=== PATIENT | female | born 1925 ===

== ENCOUNTER 2017-03-22 17:42 | Inpatient (IN) | payer MEDICARE, MEDICAID ==
[2017-03-22 17:42] VITALS: BMI 25.3
[2017-03-22 20:48] LABS: RBC URINE 5 /hpf (0-3); URINE BACTERIA RARE (<OCC); URINE BILIRUBIN NEGATIVE (NEGATIVE); URINE COLOR Colorless (YELLOW); URINE GLUCOSE (UA) NORMAL (Normal); URINE KETONE NEGATIVE (NEGATIVE); URINE LEUKOCYTE ESTERASE NEG Leu/uL (Negative); URINE PROTEIN NEGATIVE (NEGATIVE); URINE UROBILINOGEN NORMAL mg/dL (0.2-1.0); WBC URINE 3 /hpf (0-5)
[2017-03-22 20:49] LABS: URINE BLOOD 1+ (NEGATIVE)
[2017-03-22 21:09] LABS: BASO % 0.5 % (0.0-2.0); EOS # 0.1 K/uL (0.0-0.7); EOS % 1.2 % (0.0-4.0); HEMATOCRIT 37.6 % (34.0-47.0); LYMPH # 2.5 K/uL (1.0-4.3); LYMPH % 24.1 % (20.0-40.0); MEAN CELL VOLUME 88.7 fL (81.0-99.0); MEAN CORPUSCULAR HEMOGLOBIN 28.1 pg (27.0-31.0); MEAN CORPUSCULAR HGB CONC 31.7 g/dL (33.0-37.0); MEAN PLATELET VOLUME 10.6 fL (7.2-11.7); MONO # 0.9 K/uL (0.0-0.8); MONO % 8.3 % (0.0-10.0); NRBC % 0.3 % (0.0-2.0); RED CELL DISTRIBUTION WIDTH 14.8 % (11.5-14.5); WHITE BLOOD COUNT 10.5 K/uL (4.8-10.8)
--- NOTE | 2017-03-22 21:28 | CP.PCM.HP ---
History of Present Illness - History of Present Illness History of Present Illness: Please note patient is AO x 3 but is a poor historian. CC: I felt dizzy HPI: 89 year old female PMHx HTN, atrial fibrillation, diverticulosis, osteopenia, CVA who presented to the ED BIBA with her son as she was feeling dizzy and weak this AM. Patient reports she felt like she was spinning and could feel like her heart was beating very fast which is why her son called EMS. As per ER documentation, patient was found to be in rapid Afib and was given Cardizem 20mg ivp in the field. In the ER patient was placed on cardizem gtt @ 10cc/hr. Patient reports she had a fall and CVA 2-3 months ago for which she was admitted at . Her only other complaint was pain in her knees and she stated she has a history of arthritis. Patient denied any complaints of fever, chills, diaphoresis, headache, blurry vision, ear pain, sore throat, dysphagia, chest pain, SOB, cough, abd pain, nausea, vomiting, bowel/bladder complaints, swelling of her legs bilaterally, back pain, bruising, bleeding, rash, recent bleeding, recent bruising, recent travel, recent sickness, sick contacts, change in appetite, change in weight. PMD: Anjali Cardio: Vojose guadalupe PMHx: HTN, atrial fibrillation, diverticulosis, osteopenia, CVA Meds per family: Norvasc 5mg po daily, ASA 325mg po daily, Lipitor 10mg po hs, Cozaar 50mg po bid, Xarelto 15mg po acs PSHx: implantable loop recorder, Hartmans procedure for perforated diverticulitis, Hartmans reversal, revision of Hartmans reversal due to suture granuloma, hernia repair at site of Hartmans reversal, hand surgery [patient unsure] FamHx: non-contributory Social: denies tobacco/ alcohol/ drugs. Lives with son. Walks with walker with wheels. ER Course: negative troponin with EKG showing Afib at 135bpm, Cardizem gtt @ 10cc/hr, INR 1.1 and patient on xarelto, labs drawn. Present on Admission - Present on Admission Any Indicators Present on Admission: No Review of Systems - Constitutional Constitutional: As Per HPI. absent: Chills, Fever - EENT Eyes: As Per HPI. absent: Blurred Vision Ears: As Per HPI, Dizziness. absent: Ear Pain Nose/Mouth/Throat: As Per HPI. absent: Dysphagia, Sore Throat - Cardiovascular Cardiovascular: As Per HPI, Irregular Heart Rhythm, Lightheadedness, Palpitations. absent: Chest Pain, Dyspnea, Dyspnea on Exertion, Edema, Leg Edema - Respiratory Respiratory: As Per HPI. absent: Cough, Dyspnea on Exertion, Wheezing, Chest Congestion - Gastrointestinal Gastrointestinal: As Per HPI. absent: Abdominal Pain, Constipation, Diarrhea, Nausea, Vomiting - Genitourinary Genitourinary: As Per HPI. absent: Dysuria, Hematuria, Pyuria, Nocturia - Musculoskeletal Musculoskeletal: As Per HPI, Stiffness (knees). absent: Back Pain, Numbness, Tingling - Integumentary Integumentary: As Per HPI. absent: Rash - Neurological Neurological: As Per HPI, Dizziness, Weakness. absent: Headaches, Tingling - Psychiatric Psychiatric: As Per HPI. absent: Anxiety, Depression - Endocrine Endocrine: As Per HPI, Palpitations. absent: Polydipsia, Polyphagia, Polyuria - Hematologic/Lymphatic Hematologic: As Per HPI. absent: Easy Bleeding, Easy Bruising, Lymphadenopathy Past Patient History - Infectious Disease Hx of Infectious Diseases: None - Past Medical History & Family History Past Medical History?: Yes - Past Social History Smoking Status: Never Smoked - CARDIAC Hx Atrial Fibrillation: Yes Hx Hypercholesterolemia: Yes Hx Hypertension: Yes Other/Comment: Has Reveal cardiac cath lab radiology technologist implanted 03/01/2015 - PULMONARY Hx Respiratory Disorders: No - NEUROLOGICAL Hx Neurological Disorder: No HX Cerebrovascular Accident: Yes (12/28/2016) - HEENT Hx HEENT Problems: Yes Other/Comment: wear eyeglasses - RENAL Hx Chronic Kidney Disease: No - ENDOCRINE/METABOLIC Hx Endocrine Disorders: No - HEMATOLOGICAL/ONCOLOGICAL Hx Blood Disorders: No - INTEGUMENTARY Hx Dermatological Problems: No - MUSCULOSKELETAL/RHEUMATOLOGICAL Hx Arthritis: Yes - GASTROINTESTINAL Hx Colostomy: Yes (reversal 2013) Hx Diverticulitis: Yes (perforated 2011) Other/Comment: c-diff 2011 - GENITOURINARY/GYNECOLOGICAL Hx Genitourinary Disorders: No - PSYCHIATRIC Hx Psychophysiologic Disorder: No Hx Substance Use: No Other/Comment: OCD-hoards medicines - SURGICAL HISTORY Hx Cholecystectomy: Yes - ANESTHESIA Hx Anesthesia: Yes Hx Anesthesia Reactions: Yes (cardiac arrest) Hx Malignant Hyperthermia: No Meds Allergies/Adverse Reactions: Allergies Allergy/AdvReac Type Severity Reaction Status Date / Time No Known Allergies Allergy Verified 06/09/15 16:58 Physical Exam - Constitutional Appears: Well, Non-toxic, No Acute Distress - Head Exam Head Exam: ATRAUMATIC, NORMAL INSPECTION, NORMOCEPHALIC - Eye Exam Eye Exam: EOMI, Normal appearance, PERRL. absent: Conjunctival injection, Scleral icterus Pupil Exam: NORMAL ACCOMODATION - ENT Exam ENT Exam: Mucous Membranes Moist - Neck Exam Neck exam: Positive for: Full Rom, Normal Inspection. Negative for: Lymphadenopathy, Tenderness - Respiratory Exam Respiratory Exam: Clear to Auscultation Bilateral, NORMAL BREATHING PATTERN. absent: Accessory Muscle Use, Rales, Rhonchi, Wheezes, Respiratory Distress - Cardiovascular Exam Cardiovascular Exam: Tachycardia, Irregular Rhythm, +S1, +S2. absent: REGULAR RHYTHM, JVD, RRR, Systolic Murmur - GI/Abdominal Exam GI & Abdominal Exam: Normal Bowel Sounds, Soft. absent: Distended, Firm, Guarding, Rigid, Tenderness - Rectal Exam Rectal Exam: Deferred - Extremities Exam Extremities exam: Positive for: normal capillary refill, normal inspection, pedal pulses present. Negative for: pedal edema, tenderness - Back Exam Back exam: NORMAL INSPECTION. absent: rash noted, tenderness - Neurological Exam Neurological exam: Alert, Oriented x3 - Psychiatric Exam Psychiatric exam: Normal Affect, Normal Mood - Skin Skin Exam: Dry, Intact, Normal Color, Warm Results - Vital Signs Recent Vital Signs: Last Vital Signs Temp 97.8 F 03/22/17 17:48 Pulse 129 H 03/22/17 17:55 Resp 18 03/22/17 17:55 BP 146/87 03/22/17 17:55 Pulse Ox 95 03/22/17 17:55 - Labs Result Diagrams: 03/22/17 20:39 03/22/17 21:16 Labs: Laboratory Results - last 24 hr 03/22/17 03/22/17 20:13 20:39 WBC 10.5 RBC 4.24 Hgb 11.9 Hct 37.6 MCV 88.7 D MCH 28.1 MCHC 31.7 L RDW 14.8 H Plt Count 216 MPV 10.6 Neut % (Auto) 65.9 Lymph % (Auto) 24.1 [place] % (Auto) 8.3 Eos % (Auto) 1.2 Baso % (Auto) 0.5 Neut # 6.9 Lymph # 2.5 [place] # 0.9 H Eos # 0.1 Baso # 0.0 Urine Color Colorless Urine Clarity Hazy Urine pH 5.0 Ur Specific [place] 1.006 Urine Protein Negative Urine Glucose (UA) Normal Urine Ketones Negative Urine Blood 1+ H Urine Nitrate Negative Urine Bilirubin Negative Urine Urobilinogen Normal Ur Leukocyte Esterase Neg Urine WBC (Auto) 3 Urine RBC (Auto) 5 H Ur Squamous Epith Cells 3 Urine Bacteria Rare Assessment & Plan - Assessment and Plan (Free Text) Assessment: 89 year old female PMHx HTN, atrial fibrillation, diverticulosis, osteopenia, CVA who presented to the ED BIBA with her son as she was feeling dizzy and weak this AM Plan: Rapid Atrial Fibrillation -Patient admitted to TELE -negative troponin x 1 -HR between 90 and 130bpm -INR 1.1 -Cardizem gtt @ 5cc/hr -Xarelto 15mg po acs -ASA 325mg po daily -Losartan 50mg po bid -Norvasc 5mg po daily -Dr. Phan cardiology consulted -Monitor Elevated D-dimer -D-dimer 429 -f/u CTA -f/u dopplers -SCD c/i until dopplers are done Dizziness -likely secondary to rapid Afib -Monitor Hx of HTN -Norvasc 5mg po daily -Cozaar 50mg po bid -Crestor 5mg po hs -Monitor Hx of CVA -no acute complaints of this admission -ASA 325mg po daily -Crestor 5mg po hs -Xarelto 15mg po acs for hx of Afib Hx of Diverticulosis -no acute complaints of this admission -Monitor Hx of osteopenia -no acute complaints of this admission -Monitor PPX -Protonix 40mg po daily -Xarelto 15mg po acs -NS @ 60cc/hr -Heart Healthy Diet -SCDs c/i until dopplers are done Plan discussed with Dr. Anjali Joseph PGY1
[2017-03-22 21:29] LABS: CHLORIDE 104 mmol/L (98-107)
[2017-03-22 21:30] LABS: POTASSIUM 3.7 mmol/L (3.6-5.2); SODIUM 140 mmol/L (132-148)
[2017-03-22 21:32] LABS: CARBON DIOXIDE 26 mmol/L (22-30); GFR AFRICAN-AMERICAN > 60
[2017-03-22 21:33] LABS: ALKALINE PHOSPHATASE 85 U/L (38-126); ALT/SGPT 19 U/L (9-52); AST/SGOT 21 U/L (14-36); BILIRUBIN,TOTAL 0.7 mg/dL (0.2-1.3); BLOOD UREA NITROGEN 23 mg/dL (7-17); CALCIUM 8.9 mg/dl (8.6-10.4); GLUCOSE,RANDOM 105 mg/dL (65-105); TOTAL PROTEIN 7.8 g/dL (6.3-8.3)
[2017-03-22 21:52] LABS: INR 1.1
--- NOTE | 2017-03-22 22:03 | C.PDOC ---
History Of Present Illness 89 y/o female brought in by EMS with complaints of palpitations. 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 Denies SOB, vomiting, or any other complaints. Time Seen by Provider: 03/22/17 20:10 Chief Complaint (Nursing): Palpitations History Per: Patient History/Exam Limitations: no limitations Onset/Duration Of Symptoms: Hrs Current Symptoms Are (Timing): Still Present Quality Of Symptoms: Rapid Heart Rate, Irregular Heart Rate Severity: Moderate Recent travel outside of the [place]: No Past Medical History Reviewed: Historical Data, Nursing Documentation, Vital Signs Vital Signs: Last Vital Signs Temp 97.8 F 03/22/17 17:48 Pulse 129 H 03/22/17 17:55 Resp 18 03/22/17 17:55 BP 146/87 03/22/17 17:55 Pulse Ox 95 03/22/17 22:03 - Medical History PMH: Arthritis, Atrial Fibrillation, Diverticulitis (perforated 2011), HTN, Hypercholesterolemia Surgical History: Cholecystectomy - [facility] Procedures INCISIONAL HERNIA REPAIR (10/12/13) LG BOWEL STOMA CLOSURE (05/29/13) NONEXCIS DEBRID OF WOUND, INFECT, OR BURN (07/05/13) OTH LYSIS-PERITONEAL ADHES (10/12/13) REMOV ABDOM WALL SUTURE (07/05/13) REVISION OR RELOCATION OF CARDIAC DEVICE POCKET (03/02/15) VENOUS CATHETERIZATION NEC (05/29/13) Family History: States: Unknown Family Hx - Social History Hx Tobacco Use: No Hx Alcohol Use: No Hx Substance Use: No - Immunization History Hx Tetanus Toxoid Vaccination: No Hx Influenza Vaccination: No Hx Pneumococcal Vaccination: No Review Of Systems Except As Marked, All Systems Reviewed And Found Negative. Cardiovascular: Positive for: Palpitations Respiratory: Negative for: Shortness of Breath Gastrointestinal: Negative for: Vomiting Physical Exam - Physical Exam Appears: Non-toxic, No Acute Distress Skin: Warm, Dry, No Rash Head: Atraumatic Neck: Normal, Normal ROM, Supple Chest: Symmetrical, No Tenderness Cardiovascular: Rhythm Irregular (irregularly irregular), No Murmur Respiratory: Normal Breath Sounds, No Rales, No Rhonchi, No Wheezing Gastrointestinal/Abdominal: Normal Exam, Soft, No Tenderness Extremity: No Pedal Edema Extremity: Bilateral: Atraumatic Neurological/Psych: Oriented x3, Normal Speech ED Course And Treatment - Laboratory Results Result Diagrams: 03/22/17 20:39 03/22/17 21:16 Lab Interpretation: Normal (trop neg, INR 1.1 wnl, UA neg.) ECG: Interpreted By Me ECG Rhythm: Atrial Fibrillation ECG Interpretation: Abnormal Rate From EC (BPM) O2 Sat by Pulse Oximetry: 95 (room air) Pulse Ox Interpretation: Normal - Radiology CXR: Interpreted by Me CXR Interpretation: Yes: No Acute Disease Progress Note: 2020: d/w Dr. Dana lafleur to tele obs. Medical Decision Making Medical Decision Making: recurrent rapid AF controlled on Cardizem IV No additional anticoagulation offered with INR 1.1 as pt on Xaralto already with good compliance. Disposition Doctor Will See Patient In The: Hospital Counseled Patient/Family Regarding: Studies Performed, Diagnosis - Disposition Disposition: HOSPITALIZED Disposition Time: 22:03 Condition: GOOD - Clinical Impression Clinical Impression: Rapid atrial fibrillation - Scribe Statement The provider has reviewed the documentation as recorded by the Angela Mcgarry Provider Attestation: All medical record entries made by the Angela were at my direction and personally dictated by me. I have reviewed the chart and agree that the record accurately reflects my personal performance of the history, physical exam, medical decision making, and the department course for this patient. I have also personally directed, reviewed, and agree with the discharge instructions and disposition.
[2017-03-23] MEDS: Sodium Chloride 0.9% 1,000 ML IV SCH ×2 (01:53→21:08)
[2017-03-23] MEDS ORDERED: Iodixanol 320 mg/ml 150 ml Bottle IV ONE (02:39)
--- NOTE | 2017-03-23 04:18 | CT ---
EXAM: CT Angiography Chest With Intravenous Contrast CLINICAL HISTORY: 89 years old, female; Signs and symptoms; Other: Elevated d dimer; Additional info: Elevated d dimer and HX of afib TECHNIQUE: Axial computed tomographic angiography images of the chest with intravenous contrast using pulmonary embolism protocol. This CT exam was performed using one or more of the following dose reduction techniques: automated exposure control, adjustment of the mA and/or kV according to patient size, and/or use of iterative reconstruction technique. MIP reconstructed images were created and reviewed. Coronal and sagittal reformatted images were created and reviewed. CONTRAST: 70 mL of [id number] administered intravenously. COMPARISON: No relevant prior studies available. FINDINGS: Limitations: Motion artifact - mild. Pulmonary arteries: No definite pulmonary embolism. Aorta: Mild atherosclerotic disease. No aortic aneurysm. Lungs: Mild peripheral atelectasis/scarring. Minimal mosaic pattern of lung parenchyma. Minimal interlobular septal thickening. 0.3 cm LEFT lower lobe nodule. Pleural space: No significant effusion. No pneumothorax. Heart: Mild cardiomegaly. No significant pericardial effusion. Mediastinum: Small hiatal hernia. Bones/joints: Degenerative changes of shoulders and spine. No acute fracture. Soft tissues: Unremarkable. Lymph nodes: No pathologically enlarged lymph nodes. Liver: 2.1 x 2.0 cm cystic structure along inferior edge of liver, incompletely imaged. Gallbladder and bile ducts: Cholecystectomy. Adrenals: Mild, probable adenomatous, hypertrophy of adrenal glands. IMPRESSION: 1. No definite CT evidence of pulmonary embolism. 2. Possible early interstitial edema. Clinical correlation is needed. 3. Pulmonary nodule. For low-risk patients, no follow-up is necessary. For high-risk patients (smoking history or other known risk factors) recommend CT at 12 months and if unchanged, no further follow-up. 4. Incidental/non-acute findings are described above.
[2017-03-23 06:37] LABS: BASO # 0.1 K/uL (0.0-0.2); BASO % 0.5 % (0.0-2.0); EOS # 0.1 K/uL (0.0-0.7); HEMATOCRIT 34.5 % (34.0-47.0); LYMPH # 3.1 K/uL (1.0-4.3); MEAN CELL VOLUME 88.3 fL (81.0-99.0); MEAN CORPUSCULAR HEMOGLOBIN 28.8 pg (27.0-31.0); MEAN CORPUSCULAR HGB CONC 32.6 g/dL (33.0-37.0); MEAN PLATELET VOLUME 9.1 fL (7.2-11.7); MONO # 0.8 K/uL (0.0-0.8); RED CELL DISTRIBUTION WIDTH 14.9 % (11.5-14.5); WHITE BLOOD COUNT 10.3 K/uL (4.8-10.8)
[2017-03-23 06:54] LABS: CHLORIDE 104 mmol/L (98-107)
[2017-03-23 06:55] LABS: POTASSIUM 3.7 mmol/L (3.6-5.2); SODIUM 139 mmol/L (132-148)
[2017-03-23 06:56] LABS: CHOLESTEROL 140 mg/dL (0-199)
[2017-03-23 06:57] LABS: ALB/GLOB RATIO 0.9 (1.0-2.1); ALKALINE PHOSPHATASE 85 U/L (38-126); ALT/SGPT 21 U/L (9-52); AST/SGOT 26 U/L (14-36); BILIRUBIN,TOTAL 0.8 mg/dL (0.2-1.3); BLOOD UREA NITROGEN 18 mg/dL (7-17); CARBON DIOXIDE 23 mmol/L (22-30); GFR AFRICAN-AMERICAN > 60; GLUCOSE,RANDOM 106 mg/dL (65-105); PHOSPHOROUS 3.6 mg/dL (2.5-4.5); TOTAL PROTEIN 7.3 g/dL (6.3-8.3)
[2017-03-23 06:58] LABS: CALCIUM 8.5 mg/dl (8.6-10.4); MAGNESIUM 1.8 mg/dL (1.6-2.3)
[2017-03-23 07:28] LABS: THYROID STIMULATING HORMONE 4.74 mIU/L (0.46-4.68)
--- NOTE | 2017-03-23 07:33 | RAD ---
PROCEDURE: CHEST RADIOGRAPH, 1 VIEW HISTORY: Shortness of breath COMPARISON: 12/28/2016 FINDINGS: LUNGS: Moderate venous congestion with faint bibasilar airspace opacities and questionable trace effusions. Biapical pleural thickening with upper lobe granulomatous changes. PLEURA: As above. CARDIOVASCULAR: Cardiomegaly. Prominent superior mediastinum which may represent prominent vasculature. Clinical correlation. Calcification at the aortic knob. OSSEOUS STRUCTURES: Degenerative changes in the spine and shoulders. VISUALIZED UPPER ABDOMEN: Normal. OTHER FINDINGS: None. IMPRESSION: Moderate venous congestion with faint bibasilar airspace opacities and questionable trace effusions. Biapical pleural thickening with upper lobe granulomatous changes. Cardiomegaly. Prominent superior mediastinum which may represent prominent vasculature. Clinical correlation. Calcification at the aortic knob.
[2017-03-23] MEDS: Pantoprazole 40 mg EC Tab PO SCH (09:58)
[2017-03-23] MEDS: Aspirin 325 mg EC Tablets PO SCH (10:07)
--- NOTE | 2017-03-23 10:27 | CP.PCM.CON ---
<Akash Ronquillo - Last Filed: 03/23/17 16:35> History of Present Illness - History of Present Illness History of Present Illness: Consult Note for Dr. Phan Reason for consult: Atrial fibrillation with RVR 89 year old French female with PMhx of HTN, AFib, diverticulosis, osteopenia, CVA (12/2016) presented to the ED c/o progressively worsening dizziness and palpitations of 6 days. Pt reports she felt her heart beating very fast and felt weak and fatigued. Pt was found to be in AFib by EMS and later placed on a Cardizem drip 10mg/hr. Cardizem was reduced to the current rate of 5mg/hr. Currently the pt reports weakness and fatigue but denies CP, SOB , palpitations, dizziness, and HANLEY. Pt denies any other complaints. Echo (12/28/16) mod-severe impaired LV systolic function; EF= 30-35%; mild aortic and mitral regurgitation; mild tricuspid regurgitation; mild pulmonary hypertenstion; no pulmonary valvular regurgitation CXR: (03/22) Moderate venous congestion, trace effusions, Cardiomegaly, prominent superior mediastinum which may presents prominent vasculature. EKG: Atrial flutter w/ variable AV Block, nonspecific ST and T wave changes, normal axis, no cardiomegaly, HR 128. 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 absent: Chills, Fever - Cardiovascular Cardiovascular: absent: Chest Pain, Irregular Heart Rhythm - Respiratory Respiratory: absent: Cough, Dyspnea - Gastrointestinal Gastrointestinal: absent: Abdominal Pain, Diarrhea - Genitourinary Genitourinary: absent: Dysuria, Hematuria - Integumentary Integumentary: absent: New Lesions, Rash - Neurological Neurological: Dizziness. absent: Syncope Past Patient History - Infectious Disease Hx of Infectious Diseases: None - Past Medical History & Family History Past Medical History?: Yes - Past Social History Smoking Status: Never Smoked - CARDIAC Hx Atrial Fibrillation: Yes Hx Hypercholesterolemia: Yes Hx Hypertension: Yes Other/Comment: Has Reveal military source operations specialist implanted 03/01/2015 - PULMONARY Hx Respiratory Disorders: No - NEUROLOGICAL Hx Neurological Disorder: No HX Cerebrovascular Accident: Yes (12/28/2016) - HEENT Hx HEENT Problems: Yes Other/Comment: wear eyeglasses - RENAL Hx Chronic Kidney Disease: No - ENDOCRINE/METABOLIC Hx Endocrine Disorders: No - HEMATOLOGICAL/ONCOLOGICAL Hx Blood Disorders: No - INTEGUMENTARY Hx Dermatological Problems: No - MUSCULOSKELETAL/RHEUMATOLOGICAL Hx Falls: No - GASTROINTESTINAL Hx Colostomy: Yes (reversal 2013) Hx Diverticulitis: Yes (perforated 2011) Other/Comment: c-diff 2011 - GENITOURINARY/GYNECOLOGICAL Hx Genitourinary Disorders: No - PSYCHIATRIC Hx Substance Use: No - SURGICAL HISTORY Hx Cholecystectomy: Yes - ANESTHESIA Hx Anesthesia: Yes Hx Anesthesia Reactions: Yes (cardiac arrest) Hx Malignant Hyperthermia: No Meds Allergies/Adverse Reactions: Allergies Allergy/AdvReac Type Severity Reaction Status Date / Time No Known Allergies Allergy Verified 06/09/15 16:58 - Medications Medications: Current Medications Amiodarone HCl (Cordarone) 200 mg PO DAILY [facility] Last Admin: 03/23/17 09:59 Dose: 200 mg Amlodipine Besylate (Norvasc) 5 mg PO DAILY [facility] Last Admin: 03/23/17 09:59 Dose: 5 mg Aspirin (Ecotrin) 325 mg PO DAILY [facility] Last Admin: 03/23/17 10:07 Dose: 325 mg Diltiazem HCl 125 mg/ Sodium (Chloride) 125 mls @ 5 mls/hr IV .Q24H NAOMY; 5 MG/ HR PRN Reason: Protocol Last Titration: 03/23/17 09:10 Dose: 7 mg/hr, 7 mls/hr Sodium Chloride (Sodium Chloride 0.9%) 1,000 mls @ 60 mls/hr IV .[id number] [facility] Last Admin: 03/23/17 01:53 Dose: 60 mls/hr Losartan Potassium (Cozaar) 50 mg PO BID [facility] Last Admin: 03/23/17 09:59 Dose: 50 mg Pantoprazole Sodium (Protonix Ec Tab) 40 mg PO DAILY [facility] Last Admin: 03/23/17 09:58 Dose: 40 mg Rivaroxaban (Xarelto) 15 mg PO ACS [facility] Rosuvastatin Calcium (Crestor) 5 mg PO [facility] Physical Exam - Constitutional Appears: Well, No Acute Distress - Head Exam Head Exam: ATRAUMATIC, NORMAL INSPECTION, NORMOCEPHALIC - Respiratory Exam Respiratory Exam: Clear to Auscultation Bilateral, NORMAL BREATHING PATTERN. absent: Rhonchi, Wheezes - Cardiovascular Exam Cardiovascular Exam: RRR, +S1, +S2 - GI/Abdominal Exam GI & Abdominal Exam: Normal Bowel Sounds, Soft. absent: Tenderness - Extremities Exam Extremities exam: Positive for: normal inspection. Negative for: pedal edema - Neurological Exam Neurological exam: Alert, Oriented x3 - Psychiatric Exam Psychiatric exam: Normal Affect, Normal Mood - Skin Skin Exam: Intact, Normal Color, Warm Results - Vital Signs Recent Vital Signs: Last Vital Signs Temp 97.2 F L 03/23/17 03:45 Pulse 99 H 03/23/17 06:00 Resp 16 03/23/17 06:00 BP 129/70 03/23/17 06:00 Pulse Ox 98 03/23/17 06:00 - Labs Result Diagrams: 03/23/17 04:00 03/23/17 06:26 Labs: Laboratory Results - last 24 hr 03/23/17 03/23/17 03/23/17 04:00 06:25 06:26 WBC 10.3 RBC 3.91 Hgb 11.3 Hct 34.5 MCV 88.3 MCH 28.8 MCHC 32.6 L RDW 14.9 H Plt Count 235 MPV 9.1 Neut % (Auto) 60.5 Lymph % (Auto) 30.0 [place] % (Auto) 8.0 Eos % (Auto) 1.0 Baso % (Auto) 0.5 Neut # 6.2 Lymph # 3.1 [place] # 0.8 Eos # 0.1 Baso # 0.1 Sodium 139 Potassium 3.7 Chloride 104 Carbon Dioxide 23 Anion Gap 15 BUN 18 H Creatinine 0.7 Est GFR ( Amer) > 60 Est GFR (Non-Af Amer) > 60 Random Glucose 106 H Hemoglobin A1c 6.1 Calcium 8.5 L Phosphorus 3.6 Magnesium 1.8 Total Bilirubin 0.8 AST 26 ALT 21 Alkaline Phosphatase 85 Total Protein 7.3 Albumin 3.5 Globulin 3.7 Albumin/Globulin Ratio 0.9 L Triglycerides 105 D Cholesterol 140 LDL Cholesterol Direct 57 HDL Cholesterol 41 Free T4 TSH 3rd Generation 4.74 H 03/23/17 06:26 WBC RBC Hgb Hct MCV MCH MCHC RDW Plt Count MPV Neut % (Auto) Lymph % (Auto) [place] % (Auto) Eos % (Auto) Baso % (Auto) Neut # Lymph # [place] # Eos # Baso # Sodium Potassium Chloride Carbon Dioxide Anion Gap BUN Creatinine Est GFR ( Amer) Est GFR (Non-Af Amer) Random Glucose Hemoglobin A1c Calcium Phosphorus Magnesium Total Bilirubin AST ALT Alkaline Phosphatase Total Protein Albumin Globulin Albumin/Globulin Ratio Triglycerides Cholesterol LDL Cholesterol Direct HDL Cholesterol Free T4 1.58 TSH 3rd Generation Assessment & Plan (1) Atrial fibrillation with RVR Assessment and Plan: Pt currently rate controlled on cardizem drip, transition to PO Amiodarone 200 mg daily added to regimen to normalize rhythm Status: Acute <Lynnette Phan - Last Filed: 03/24/17 09:23> Meds - Medications Medications: Current Medications Amiodarone HCl (Cordarone) 200 mg PO DAILY [facility] Last Admin: 03/23/17 09:59 Dose: 200 mg Aspirin (Ecotrin) 325 mg PO DAILY [facility] Last Admin: 03/23/17 10:07 Dose: 325 mg Carvedilol (Coreg) 6.25 mg PO BID [facility] Last Admin: 03/23/17 18:27 Dose: 6.25 mg Diltiazem HCl (Cardizem) 30 mg PO QID [facility] Last Admin: 03/23/17 21:11 Dose: Not Given Sodium Chloride (Sodium Chloride 0.9%) 1,000 mls @ 60 mls/hr IV .[id number] [facility] Last Admin: 03/23/17 21:08 Dose: Not Given Losartan Potassium (Cozaar) 50 mg PO BID [facility] Last Admin: 03/23/17 18:27 Dose: 50 mg Pantoprazole Sodium (Protonix Ec Tab) 40 mg PO DAILY [facility] Last Admin: 03/23/17 09:58 Dose: 40 mg Rivaroxaban (Xarelto) 15 mg PO ACS [facility] Last Admin: 03/23/17 18:40 Dose: 15 mg Rosuvastatin Calcium (Crestor) 5 mg PO HS [facility] Last Admin: 03/23/17 21:48 Dose: Not Given Results - Vital Signs Recent Vital Signs: Last Vital Signs Temp 98.2 F 03/23/17 23:22 Pulse 52 L 03/24/17 08:00 Resp 20 03/23/17 23:22 BP 150/74 03/23/17 23:22 Pulse Ox 99 03/23/17 23:22 - Labs Result Diagrams: 03/23/17 04:00 03/23/17 06:26 Attending/Attestation - Attestation I have personally seen and examined this patient.: Yes I have fully participated in the care of the patient.: Yes I have reviewed all pertinent clinical information: Yes Notes (Text): 03/24/17 09:23 pt with rvr will add amiodorone for chemical cardioversion and maintainance of NSR when conversion occurs small dose beta with cardizem for rate control
--- NOTE | 2017-03-23 11:25 | CP.PCM.PN ---
Subjective - Date & Time of Evaluation Date of Evaluation: 03/23/17 Time of Evaluation: 11:21 - Subjective Subjective: PGY-1 note for medicine, Dr. Alba Patient was seen and examined at bedside. Patient states that she feels okay today and just complains of feeling palpitations on and off. She states that her baseline for ambulation at home is using a walker and she denied any changes to speech after her recent CVA. She states she has no leg pains and she has been tolerating her diet. She denied dizziness, fever, chills, chest pain, sob, cough, d/c/n/v, abdominal pian, or changes in urination. Objective - Vital Signs/Intake and Output Vital Signs (last 24 hours): Temp Pulse Resp BP Pulse Ox 97.2 F L 99 H 16 129/70 98 03/23/17 03:45 03/23/17 06:00 03/23/17 06:00 03/23/17 06:00 03/23/17 06:00 Intake and Output: 03/23/17 03/23/17 06:59 18:59 Intake Total 65 0 Output Total 200 Balance -135 0 - Medications Medications: Current Medications Amiodarone HCl (Cordarone) 200 mg PO DAILY [facility] Last Admin: 03/23/17 09:59 Dose: 200 mg Amlodipine Besylate (Norvasc) 5 mg PO DAILY [facility] Last Admin: 03/23/17 09:59 Dose: 5 mg Aspirin (Ecotrin) 325 mg PO DAILY [facility] Last Admin: 03/23/17 10:07 Dose: 325 mg Diltiazem HCl 125 mg/ Sodium (Chloride) 125 mls @ 5 mls/hr IV .Q24H [facility]; 5 MG/ HR PRN Reason: Protocol Last Titration: 03/23/17 09:10 Dose: 7 mg/hr, 7 mls/hr Sodium Chloride (Sodium Chloride 0.9%) 1,000 mls @ 60 mls/hr IV .[id number] [facility] Last Admin: 03/23/17 01:53 Dose: 60 mls/hr Losartan Potassium (Cozaar) 50 mg PO BID [facility] Last Admin: 03/23/17 09:59 Dose: 50 mg Pantoprazole Sodium (Protonix Ec Tab) 40 mg PO DAILY [facility] Last Admin: 03/23/17 09:58 Dose: 40 mg Rivaroxaban (Xarelto) 15 mg PO ACS [facility] Rosuvastatin Calcium (Crestor) 5 mg PO HS [facility] - Labs Labs: 03/23/17 04:00 03/23/17 06:26 PT 12.1 SECONDS (9.7-12.2) 03/22/17 20:39 INR 1.1 03/22/17 20:39 - Additional Findings Additional findings: Appears: Well, Non-toxic, No Acute Distress - Head Exam Head Exam: ATRAUMATIC, NORMAL INSPECTION, NORMOCEPHALIC - Eye Exam Eye Exam: EOMI, Normal appearance, PERRL. absent: Conjunctival injection, Scleral icterus Pupil Exam: NORMAL ACCOMODATION - ENT Exam ENT Exam: Mucous Membranes Moist - Neck Exam Neck exam: Positive for: Full Rom, Normal Inspection, No JVD. Negative for: Lymphadenopathy, Tenderness - Respiratory Exam Respiratory Exam: Clear to Auscultation Bilateral, NORMAL BREATHING PATTERN. absent: Accessory Muscle Use, Rales, Rhonchi, Wheezes, Respiratory Distress - Cardiovascular Exam Cardiovascular Exam: Tachycardia, Irregular Rhythm, +S1, +S2. absent: REGULAR RHYTHM, JVD, RRR, Systolic Murmur - GI/Abdominal Exam GI & Abdominal Exam: Normal Bowel Sounds, Soft. absent: Distended, Firm, Guarding, Rigid, Tenderness - Extremities Exam Extremities exam: Positive for: normal capillary refill, normal inspection, pedal pulses present. Negative for: pedal edema, tenderness - Back Exam Back exam: NORMAL INSPECTION. absent: rash noted, tenderness - Neurological Exam Neurological exam: Alert, Oriented x3 - Psychiatric Exam Psychiatric exam: Normal Affect, Normal Mood - Skin Skin Exam: Dry, Intact, Normal Color, Warm Assessment and Plan - Assessment and Plan (Free Text) Assessment: 89 year old female PMHx HTN, atrial fibrillation, diverticulosis, osteopenia, CVA who presented to the ED BIBA with her son as she was feeling dizzy and weak this AM Plan: Rapid Atrial Fibrillation -Patient admitted to TELE -negative troponin x 1 -HR between 90 and 130bpm -INR 1.1 -Cardizem drip discontinued; - Cardizem 30mg PO QID started - Coreg 6.25mg PO BID -Xarelto 15mg po acs -ASA 325mg po daily -Losartan 50mg po bid -Dr. Phan cardiology consulted -Monitor Elevated D-dimer -D-dimer 429 -CTA: no definite PE. (see full report) -dopplers: negative Dizziness -likely secondary to rapid Afib -Monitor Hx of HTN Well-controlled since admission -Norvasc 5mg po daily - DISCONTINUED -Cozaar 50mg po bid -Crestor 5mg po hs -Coreg 6.25mg PO BID -Cardizem 30mg PO QID -Monitor Hx of CVA -no acute complaints of this admission -ASA 325mg po daily -Crestor 5mg po hs -Xarelto 15mg po acs for hx of Afib Hx of Diverticulosis -no acute complaints of this admission -Monitor Hx of osteopenia -no acute complaints of this admission -Monitor PPX -Protonix 40mg po daily -Xarelto 15mg po acs -NS @ 60cc/hr -Heart Healthy Diet Plan discussed with Dr. Anjali Douglas, PGY-1
--- NOTE | 2017-03-23 11:53 | CARD ---
APPROVED REPORT EKG Measurement Heart [id number] <Conclusion> Atrial flutter with variable AV block Nonspecific ST and T wave abnormality Abnormal ECG
[2017-03-23 15:43] VITALS: RESP 20
[2017-03-23] MEDS ORDERED: Metoprolol 1 mg/ml Inj IVP ONE (16:25)
--- NOTE | 2017-03-23 16:27 | VASCLAB ---
PROCEDURE: Lower Extremity Venous Duplex Exam. HISTORY: elevated d-dimer PRIORS: None. TECHNIQUE: Bilateral common femoral, femoral, popliteal and posterior tibial, peroneal and great saphenous veins were evaluated. Flow was assessed with color Doppler, compressibility, assessment of phasic flow and augmentation response. Report prepared by SIMA Naranjo FINDINGS: RIGHT: 1. Common Femoral Vein: 1.1. Compressibility - Fully compressible: Thrombus - None : Flow - Phasic: Augmentation -Normal: Reflux - None. 2. Femoral Vein: 2.1. Compressibility - Fully compressible: Thrombus - None : Flow - Phasic: Augmentation -Normal: Reflux - None. 3. Popliteal Vein: 3.1. Compressibility - Fully compressible: Thrombus - None : Flow - Phasic: Augmentation -Normal: Reflux - None. 4. Posterior Tibial Vein: 4.1. Compressibility - Fully compressible: Thrombus - None: Flow - Phasic: Augmentation -Normal: Reflux - None. 5. Peroneal Vein: 5.1. Compressibility - Fully compressible: Thrombus - None: Flow - Phasic: Augmentation -Normal: Reflux - None. 6. Great Saphenous Vein: 6.1. Compressibility - Fully compressible: Thrombus - None: Flow - Phasic: Augmentation - Normal: Reflux - None. LEFT: 1. Common Femoral Vein: 1.1. Compressibility - Fully compressible: Thrombus - None: Flow - Phasic: Augmentation -Normal: Reflux - None. 2. Femoral Vein: 2.1. Compressibility - Fully compressible: Thrombus - None: Flow - Phasic: Augmentation -Normal: Reflux - None. 3. Popliteal Vein: 3.1. Compressibility - Fully compressible: Thrombus - None : Flow - Phasic: Augmentation -Normal: Reflux - None. 4. Posterior Tibial Vein: 4.1. Compressibility - Fully compressible: Thrombus - None: Flow - Phasic: Augmentation -Normal: Reflux - None. 5. Peroneal Vein: 5.1. Compressibility - Fully compressible: Thrombus - None: Flow - Phasic: Augmentation -Normal: Reflux - None. 6. Great Saphenous Vein: 6.1. Compressibility - Fully compressible: Thrombus - None: Flow - Phasic: Augmentation - Normal: Reflux - None. OTHER FINDINGS: Right: None significant. Left: None significant. IMPRESSION: Right: No evidence of deep or superficial vein thrombosis of the right lower extremity. Normal valve function noted of the right side. Left: No evidence of deep or superficial vein thrombosis of the left lower extremity. Normal valve function noted of the left side.
--- NOTE | 2017-03-24 09:18 | CP.PCM.PN ---
<Akash Ronquillo - Last Filed: 03/24/17 09:16> Subjective - Date & Time of Evaluation Date of Evaluation: 03/24/17 Time of Evaluation: 09:16 - Subjective Subjective: Pt seen at bedside. No acute events overnight as per nursing. Pt's heart rate remained stable in the low 60's. Pt refused exam this morning. Objective - Vital Signs/Intake and Output Vital Signs (last 24 hours): Temp Pulse Resp BP Pulse Ox 98.2 F 52 L 20 150/74 99 03/23/17 23:22 03/24/17 08:00 03/23/17 23:22 03/23/17 23:22 03/23/17 23:22 - Medications Medications: Current Medications Amiodarone HCl (Cordarone) 200 mg PO DAILY [facility] Last Admin: 03/23/17 09:59 Dose: 200 mg Aspirin (Ecotrin) 325 mg PO DAILY [facility] Last Admin: 03/23/17 10:07 Dose: 325 mg Carvedilol (Coreg) 6.25 mg PO BID [facility] Last Admin: 03/23/17 18:27 Dose: 6.25 mg Diltiazem HCl (Cardizem) 30 mg PO QID [facility] Last Admin: 03/23/17 21:11 Dose: Not Given Sodium Chloride (Sodium Chloride 0.9%) 1,000 mls @ 60 mls/hr IV .[id number] [facility] Last Admin: 03/23/17 21:08 Dose: Not Given Losartan Potassium (Cozaar) 50 mg PO BID [facility] Last Admin: 03/23/17 18:27 Dose: 50 mg Pantoprazole Sodium (Protonix Ec Tab) 40 mg PO DAILY [facility] Last Admin: 03/23/17 09:58 Dose: 40 mg Rivaroxaban (Xarelto) 15 mg PO ACS [facility] Last Admin: 03/23/17 18:40 Dose: 15 mg Rosuvastatin Calcium (Crestor) 5 mg PO HS [facility] Last Admin: 03/23/17 21:48 Dose: Not Given - Labs Labs: 03/23/17 04:00 03/23/17 06:26 PT 12.1 SECONDS (9.7-12.2) 03/22/17 20:39 INR 1.1 03/22/17 20:39 Assessment and Plan (1) Atrial fibrillation with RVR Assessment & Plan: Rate controlled at this time Continue following medication at home: Amiodarone 200 mg daily Cardizem LA 120 mg daily Lopressor 12.5 mg BID Pt is to follow up in [address] Phan Status: Acute <Lynnette Phan - Last Filed: 03/24/17 09:24> Objective - Vital Signs/Intake and Output Vital Signs (last 24 hours): Temp Pulse Resp BP Pulse Ox 98.2 F 52 L 20 150/74 99 03/23/17 23:22 03/24/17 08:00 03/23/17 23:22 03/23/17 23:22 03/23/17 23:22 - Medications Medications: Current Medications Amiodarone HCl (Cordarone) 200 mg PO DAILY [facility] Last Admin: 03/23/17 09:59 Dose: 200 mg Aspirin (Ecotrin) 325 mg PO DAILY [facility] Last Admin: 03/23/17 10:07 Dose: 325 mg Carvedilol (Coreg) 6.25 mg PO BID [facility] Last Admin: 03/23/17 18:27 Dose: 6.25 mg Diltiazem HCl (Cardizem) 30 mg PO QID [facility] Last Admin: 03/23/17 21:11 Dose: Not Given Sodium Chloride (Sodium Chloride 0.9%) 1,000 mls @ 60 mls/hr IV .[id number] [facility] Last Admin: 03/23/17 21:08 Dose: Not Given Losartan Potassium (Cozaar) 50 mg PO BID [facility] Last Admin: 03/23/17 18:27 Dose: 50 mg Pantoprazole Sodium (Protonix Ec Tab) 40 mg PO DAILY [facility] Last Admin: 03/23/17 09:58 Dose: 40 mg Rivaroxaban (Xarelto) 15 mg PO ACS [facility] Last Admin: 03/23/17 18:40 Dose: 15 mg Rosuvastatin Calcium (Crestor) 5 mg PO HS [facility] Last Admin: 03/23/17 21:48 Dose: Not Given - Labs Labs: 03/23/17 04:00 03/23/17 06:26 PT 12.1 SECONDS (9.7-12.2) 03/22/17 20:39 INR 1.1 03/22/17 20:39 Attending/Attestation - Attestation I have personally seen and examined this patient.: Yes I have fully participated in the care of the patient.: Yes I have reviewed all pertinent clinical information, including history, physical exam and plan: Yes Notes (Text): 03/24/17 09:24 pt converted to NSR rate control continue a/c
[2017-03-24] MEDS: Aspirin 325 mg EC Tablets PO SCH (09:59)
[2017-03-24] MEDS: Pantoprazole 40 mg EC Tab PO SCH (09:59)
--- NOTE | 2017-03-24 17:26 | CP.PCM.PN ---
Subjective - Date & Time of Evaluation Date of Evaluation: 03/24/17 Time of Evaluation: 07:45 - Subjective Subjective: PGY-1 note for medicine, Dr. Alba Patient was seen and examined at bedside. Nursing reports pt bradycardic at times last night with rate into the 30s while sleeping. Pt remained asymptomatic. Cardizem dose decreased. NSR maintained. She denied dizziness, fever, chills, chest pain, sob, cough, d/c/n/v, abdominal pain, or changes in urination. Objective - Vital Signs/Intake and Output Vital Signs (last 24 hours): Temp Pulse Resp BP Pulse Ox 98.2 F 42 L 20 165/87 H 99 03/23/17 23:22 03/24/17 16:00 03/23/17 23:22 03/24/17 10:00 03/23/17 23:22 - Medications Medications: Current Medications Amiodarone HCl (Cordarone) 200 mg PO DAILY [facility] Last Admin: 03/24/17 09:59 Dose: 200 mg Aspirin (Ecotrin) 325 mg PO DAILY [facility] Last Admin: 03/24/17 09:59 Dose: 325 mg Carvedilol (Coreg) 6.25 mg PO BID [facility] Diltiazem HCl (Cardizem) 30 mg PO BID [facility] Sodium Chloride (Sodium Chloride 0.9%) 1,000 mls @ 60 mls/hr IV .[id number] [facility] Last Admin: 03/23/17 21:08 Dose: Not Given Losartan Potassium (Cozaar) 50 mg PO BID [facility] Last Admin: 03/24/17 13:57 Dose: Not Given Pantoprazole Sodium (Protonix Ec Tab) 40 mg PO DAILY [facility] Last Admin: 03/24/17 09:59 Dose: 40 mg Rivaroxaban (Xarelto) 15 mg PO ACS [facility] Last Admin: 03/23/17 18:40 Dose: 15 mg Rosuvastatin Calcium (Crestor) 5 mg PO HS [facility] Last Admin: 03/23/17 21:48 Dose: Not Given - Labs Labs: 03/23/17 04:00 03/23/17 06:26 PT 12.1 SECONDS (9.7-12.2) 03/22/17 20:39 INR 1.1 03/22/17 20:39 - Additional Findings Additional findings: Appears: Well, Non-toxic, No Acute Distress - Head Exam Head Exam: ATRAUMATIC, NORMAL INSPECTION, NORMOCEPHALIC - Eye Exam Eye Exam: EOMI, Normal appearance, PERRL. absent: Conjunctival injection, Scleral icterus Pupil Exam: NORMAL ACCOMODATION - ENT Exam ENT Exam: Mucous Membranes Moist - Neck Exam Neck exam: Positive for: Full Rom, Normal Inspection, No JVD. Negative for: Lymphadenopathy, Tenderness - Respiratory Exam Respiratory Exam: Clear to Auscultation Bilateral, NORMAL BREATHING PATTERN. absent: Accessory Muscle Use, Rales, Rhonchi, Wheezes, Respiratory Distress - Cardiovascular Exam Cardiovascular Exam: Tachycardia, Irregular Rhythm, +S1, +S2. absent: REGULAR RHYTHM, JVD, RRR, Systolic Murmur - GI/Abdominal Exam GI & Abdominal Exam: Normal Bowel Sounds, Soft. absent: Distended, Firm, Guarding, Rigid, Tenderness - Extremities Exam Extremities exam: Positive for: normal capillary refill, normal inspection, pedal pulses present. Negative for: pedal edema, tenderness - Back Exam Back exam: NORMAL INSPECTION. absent: rash noted, tenderness - Neurological Exam Neurological exam: Alert, Oriented x3 - Psychiatric Exam Psychiatric exam: Normal Affect, Normal Mood - Skin Skin Exam: Dry, Intact, Normal Color, Warm Assessment and Plan - Assessment and Plan (Free Text) Assessment: 89 year old female PMHx HTN, atrial fibrillation, diverticulosis, osteopenia, CVA who presented to the ED in rapid afib. Plan: Rapid Atrial Fibrillation -Patient admitted to TELE - Rate controlled - Cardizem decreased to 30mg PO BID, holding parameters in place - Coreg 6.25mg PO BID, holding parameters in place - Xarelto 15mg po acs - ASA 325mg po daily - Losartan 50mg po bid -Dr. Phan cardiology consulted - Monitor Elevated D-dimer -D-dimer 429 -CTA: no definite PE. (see full report) -dopplers: negative Dizziness -likely secondary to rapid Afib -Monitor Hx of HTN Well-controlled since admission -Cozaar 50mg po bid -Crestor 5mg po hs -Coreg 6.25mg PO BID -Cardizem 30mg PO BID -Monitor Hx of CVA -no acute complaints of this admission -ASA 325mg po daily -Crestor 5mg po hs -Xarelto 15mg po acs for hx of Afib Hx of Diverticulosis -no acute complaints of this admission -Monitor Hx of osteopenia -no acute complaints of this admission -Monitor PPX -Protonix 40mg po daily -Xarelto 15mg po acs -NS @ 60cc/hr -Heart Healthy Diet Plan discussed with Dr. Anjali Douglas, PGY-1
[2017-03-24] MEDS: Sodium Chloride 0.9% 1,000 ML IV SCH (23:14)
[2017-03-25] MEDS: Sodium Chloride 0.9% 1,000 ML IV SCH (04:25)
[2017-03-25 07:37] LABS: BASO % 0.5 % (0.0-2.0); EOS # 0.1 K/uL (0.0-0.7); EOS % 1.7 % (0.0-4.0); HEMATOCRIT 29.9 % (34.0-47.0); LYMPH # 2.8 K/uL (1.0-4.3); LYMPH % 35.7 % (20.0-40.0); MEAN CELL VOLUME 88.4 fL (81.0-99.0); MEAN CORPUSCULAR HEMOGLOBIN 28.6 pg (27.0-31.0); MEAN CORPUSCULAR HGB CONC 32.4 g/dL (33.0-37.0); MONO # 0.6 K/uL (0.0-0.8); MONO % 7.6 % (0.0-10.0); RED CELL DISTRIBUTION WIDTH 14.9 % (11.5-14.5); WHITE BLOOD COUNT 7.8 K/uL (4.8-10.8)
[2017-03-25 08:26] VITALS: O2SAT 97
[2017-03-25 08:37] LABS: CHLORIDE 107 mmol/L (98-107)
[2017-03-25 08:38] LABS: POTASSIUM 3.8 mmol/L (3.6-5.2); SODIUM 141 mmol/L (132-148)
[2017-03-25 08:40] LABS: ALB/GLOB RATIO 0.9 (1.0-2.1); BILIRUBIN,TOTAL 0.6 mg/dL (0.2-1.3); CARBON DIOXIDE 27 mmol/L (22-30); GFR AFRICAN-AMERICAN > 60; TOTAL PROTEIN 6.9 g/dL (6.3-8.3)
[2017-03-25 08:41] LABS: ALKALINE PHOSPHATASE 71 U/L (38-126); ALT/SGPT 16 U/L (9-52); AST/SGOT 18 U/L (14-36); BLOOD UREA NITROGEN 17 mg/dL (7-17); GLUCOSE,RANDOM 92 mg/dL (65-105); PHOSPHOROUS 3.2 mg/dL (2.5-4.5)
[2017-03-25 08:42] LABS: MAGNESIUM 1.9 mg/dL (1.6-2.3)
--- NOTE | 2017-03-25 09:13 | CP.PCM.PN ---
Subjective - Date & Time of Evaluation Date of Evaluation: 03/25/17 Time of Evaluation: 09:09 - Subjective Subjective: Progress note for Dr. Phan Pt seen and examined at bedside. Pt did have a short episode of tachycardia last night with an irregular rhythm. Pt continues to be rate controlled other than the episode last night. No complaints at this time. Denies CP, SOB, N/V/D. Objective - Vital Signs/Intake and Output Vital Signs (last 24 hours): Temp Pulse Resp BP Pulse Ox 97.8 F 59 L 20 140/70 97 03/25/17 08:25 03/25/17 08:25 03/25/17 08:25 03/25/17 08:25 03/25/17 08:25 - Medications Medications: Current Medications Acetaminophen (Tylenol 325mg Tab) 650 mg PO Q6 PRN PRN Reason: Pain, Mild (1-3) Amiodarone HCl (Cordarone) 200 mg PO DAILY [facility] Last Admin: 03/24/17 09:59 Dose: 200 mg Aspirin (Ecotrin) 325 mg PO DAILY [facility] Last Admin: 03/24/17 09:59 Dose: 325 mg Carvedilol (Coreg) 6.25 mg PO BID [facility] Last Admin: 03/24/17 23:44 Dose: 6.25 mg Diltiazem HCl (Cardizem) 30 mg PO BID [facility] Last Admin: 03/24/17 23:44 Dose: 30 mg Sodium Chloride (Sodium Chloride 0.9%) 1,000 mls @ 60 mls/hr IV .[id number] [facility] Last Admin: 03/25/17 04:25 Dose: Not Given Losartan Potassium (Cozaar) 50 mg PO BID [facility] Last Admin: 03/24/17 17:44 Dose: Not Given Pantoprazole Sodium (Protonix Ec Tab) 40 mg PO DAILY [facility] Last Admin: 03/24/17 09:59 Dose: 40 mg Rivaroxaban (Xarelto) 15 mg PO ACS [facility] Last Admin: 03/24/17 17:46 Dose: 15 mg Rosuvastatin Calcium (Crestor) 5 mg PO HS [facility] Last Admin: 03/24/17 22:01 Dose: 5 mg - Labs Labs: 03/25/17 07:28 03/25/17 07:28 PT 12.1 SECONDS (9.7-12.2) 03/22/17 20:39 INR 1.1 03/22/17 20:39 - Constitutional Appears: Well, No Acute Distress - Head Exam Head Exam: ATRAUMATIC, NORMAL INSPECTION, NORMOCEPHALIC - Respiratory Exam Respiratory Exam: Clear to Ausculation Bilateral, NORMAL BREATHING PATTERN. absent: Rhonchi, Wheezes - Cardiovascular Exam Cardiovascular Exam: RRR, +S1, +S2 - GI/Abdominal Exam GI & Abdominal Exam: Soft, Normal Bowel Sounds. absent: Tenderness - Extremities Exam Extremities Exam: Normal Inspection. absent: Pedal Edema - Neurological Exam Neurological Exam: Alert, Awake, Oriented x3 Assessment and Plan (1) Atrial fibrillation with RVR Assessment & Plan: Rate controlled at this time Converted to NSR yesterday Home medication scripts written in EMR Pt will follow up with Dr. Phan in 1 month Status: Acute
[2017-03-25] MEDS: Aspirin 325 mg EC Tablets PO SCH (10:09)
[2017-03-25] MEDS: Pantoprazole 40 mg EC Tab PO SCH (10:09)
--- NOTE | 2017-03-25 12:27 | CP.PCM.PN ---
Subjective - Date & Time of Evaluation Date of Evaluation: 03/25/17 Time of Evaluation: 12:26 - Subjective Subjective: PGY-1 medical progress note for Dr. Alba's service Patient was seen and examined at bedside. Nursing reports patient was tachycardic last night after having medications held due to bradycardia to the low 40s. Medications were restarted and patient has been having intermittent bradycardia. Patient has remained asymptomatic. Cardizem changed to once daily. Patient states she is doing well and has been tolerating her diet. She states that she has not had a bowel movement in 2 days. She denies any chest pain, palpitations, sob, fever, chills, diarrhea, cough, abdominal pain or changes in urination. Objective - Vital Signs/Intake and Output Vital Signs (last 24 hours): Temp Pulse Resp BP Pulse Ox 97.8 F 59 L 20 140/70 97 03/25/17 08:25 03/25/17 08:25 03/25/17 08:25 03/25/17 08:25 03/25/17 08:25 - Medications Medications: Current Medications Acetaminophen (Tylenol 325mg Tab) 650 mg PO Q6 PRN PRN Reason: Pain, Mild (1-3) Amiodarone HCl (Cordarone) 200 mg PO DAILY [facility] Last Admin: 03/25/17 11:27 Dose: Not Given Aspirin (Ecotrin) 325 mg PO DAILY [facility] Last Admin: 03/25/17 10:09 Dose: 325 mg Carvedilol (Coreg) 6.25 mg PO BID [facility] Last Admin: 03/25/17 11:27 Dose: Not Given Diltiazem HCl (Cardizem) 30 mg PO Q24H [facility] Sodium Chloride (Sodium Chloride 0.9%) 1,000 mls @ 60 mls/hr IV .[id number] [facility] Last Admin: 03/25/17 04:25 Dose: Not Given Losartan Potassium (Cozaar) 50 mg PO BID [facility] Last Admin: 03/25/17 10:09 Dose: Not Given Pantoprazole Sodium (Protonix Ec Tab) 40 mg PO DAILY [facility] Last Admin: 03/25/17 10:09 Dose: 40 mg Rivaroxaban (Xarelto) 15 mg PO ACS [facility] Last Admin: 03/24/17 17:46 Dose: 15 mg Rosuvastatin Calcium (Crestor) 5 mg PO HS [facility] Last Admin: 03/24/17 22:01 Dose: 5 mg - Labs Labs: 03/25/17 07:28 03/25/17 07:28 PT 12.1 SECONDS (9.7-12.2) 03/22/17 20:39 INR 1.1 03/22/17 20:39 - Constitutional Appears: Non-toxic, No Acute Distress - Head Exam Head Exam: ATRAUMATIC, NORMOCEPHALIC - Eye Exam Eye Exam: EOMI. absent: Scleral icterus Pupil Exam: PERRL - ENT Exam ENT Exam: Mucous Membranes Moist - Respiratory Exam Respiratory Exam: Clear to Ausculation Bilateral, NORMAL BREATHING PATTERN. absent: Rales, Rhonchi, Wheezes - Cardiovascular Exam Cardiovascular Exam: REGULAR RHYTHM, +S1, +S2 - GI/Abdominal Exam GI & Abdominal Exam: Soft, Normal Bowel Sounds. absent: Tenderness - Neurological Exam Neurological Exam: Alert, Awake, Oriented x3 - Psychiatric Exam Psychiatric exam: Normal Affect, Normal Mood - Skin Skin Exam: Normal Color, Warm Assessment and Plan - Assessment and Plan (Free Text) Plan: Rapid Atrial Fibrillation -Patient admitted to [facility] - Rate controlled - bradycardia this AM (asymptomatic) - Cardizem decreased to 30mg PO Daily - Coreg 6.25mg PO BID, holding parameters in place - Xarelto 15mg po acs - ASA 325mg po daily - Losartan 50mg po bid Dr. Phan cardiology consulted - reccs: continue Cardizem, Amiodarone, BB, and follow up as outpatient in one month Elevated D-dimer -D-dimer 429 -CTA: no definite PE. (see full report) -dopplers: negative Dizziness -likely secondary to rapid Afib -Monitor Hx of HTN Well-controlled since admission -Cozaar 50mg po bid -Crestor 5mg po hs -Coreg 6.25mg PO BID -Cardizem 30mg PO Daily -Monitor Hx of CVA -no acute complaints of this admission -ASA 325mg po daily -Crestor 5mg po hs -Xarelto 15mg po acs for hx of Afib Hx of Diverticulosis -no acute complaints of this admission -Monitor Hx of osteopenia -no acute complaints of this admission -Monitor PPX -Protonix 40mg po daily -Xarelto 15mg po acs -NS @ 60cc/hr -Heart Healthy Diet Plan discussed with Dr. Anjali Douglas, PGY-1
[2017-03-25 15:51] VITALS: TEMP 97.9
--- NOTE | 2017-03-25 17:22 | CP.PCM.DIS ---
Provider - Provider Date of Admission: 03/22/17 21:32 Attending physician: Tay Alba Jr, MD Primary care physician: Dr Alba Consults: Dr. Phan Time Spent in preparation of Discharge (in minutes): 45 Diagnosis - Discharge Diagnosis (1) Atrial fibrillation with RVR Status: Acute Comment: Pt rate controlled with Amiodarone, Cardizem, and Coreg Hospital Course - Lab Results Lab Results: Micro Results 03/23/17 14:28 Naris MRSA Culture - Final MRSA NOT DETECTED Most Recent Lab Values WBC 7.8 K/uL (4.8-10.8) 03/25/17 07:28 RBC 3.38 Mil/uL (3.80-5.20) L 03/25/17 07:28 Hgb 9.7 g/dL (11.0-16.0) L 03/25/17 07:28 Hct 29.9 % (34.0-47.0) L 03/25/17 07:28 MCV 88.4 fL (81.0-99.0) 03/25/17 07:28 MCH 28.6 pg (27.0-31.0) 03/25/17 07:28 MCHC 32.4 g/dL (33.0-37.0) L 03/25/17 07:28 RDW 14.9 % (11.5-14.5) H 03/25/17 07:28 Plt Count 221 K/uL (130-400) 03/25/17 07:28 MPV 9.0 fL (7.2-11.7) 03/25/17 07:28 Neut % (Auto) 54.5 % (50.0-75.0) 03/25/17 07:28 Lymph % (Auto) 35.7 % (20.0-40.0) 03/25/17 07:28 [place] % (Auto) 7.6 % (0.0-10.0) 03/25/17 07:28 Eos % (Auto) 1.7 % (0.0-4.0) 03/25/17 07:28 Baso % (Auto) 0.5 % (0.0-2.0) 03/25/17 07:28 Neut # 4.3 K/uL (1.8-7.0) 03/25/17 07:28 Lymph # 2.8 K/uL (1.0-4.3) 03/25/17 07:28 [place] # 0.6 K/uL (0.0-0.8) 03/25/17 07:28 Eos # 0.1 K/uL (0.0-0.7) 03/25/17 07:28 Baso # 0.0 K/uL (0.0-0.2) 03/25/17 07:28 PT 12.1 SECONDS (9.7-12.2) 03/22/17 20:39 INR 1.1 03/22/17 20:39 D-Dimer, Quantitative 429 ng/mlDDU (0-243) H 03/22/17 20:39 Sodium 141 mmol/L (132-148) 03/25/17 07:28 Potassium 3.8 mmol/L (3.6-5.2) 03/25/17 07:28 Chloride 107 mmol/L (98-107) 03/25/17 07:28 Carbon Dioxide 27 mmol/L (22-30) 03/25/17 07:28 Anion Gap 12 (10-20) 03/25/17 07:28 BUN 17 mg/dL (7-17) 03/25/17 07:28 Creatinine 0.9 MG/DL (0.7-1.2) 03/25/17 07:28 Est GFR ( Amer) > 60 03/25/17 07:28 Est GFR (Non-Af Amer) 59 03/25/17 07:28 Random Glucose 92 mg/dL (65-105) 03/25/17 07:28 Hemoglobin A1c 6.1 % (4.2-6.5) 03/23/17 06:25 Calcium 8.0 mg/dl (8.6-10.4) L 03/25/17 07:28 Phosphorus 3.2 mg/dL (2.5-4.5) 03/25/17 07:28 Magnesium 1.9 mg/dL (1.6-2.3) 03/25/17 07:28 Total Bilirubin 0.6 mg/dL (0.2-1.3) 03/25/17 07:28 AST 18 U/L (14-36) 03/25/17 07:28 ALT 16 U/L (9-52) 03/25/17 07:28 Alkaline Phosphatase 71 U/L (38-126) 03/25/17 07:28 Troponin I < 0.0120 ng/mL (0.00-0.120) 03/22/17 21:16 NT-Pro-B Natriuret Pep 612 pg/mL (0-900) 03/22/17 21:16 Total Protein 6.9 g/dL (6.3-8.3) 03/25/17 07:28 Albumin 3.3 g/dL (3.5-5.0) L 03/25/17 07:28 Globulin 3.6 gm/dL (2.2-3.9) 03/25/17 07:28 Albumin/Globulin Ratio 0.9 (1.0-2.1) L 03/25/17 07:28 Triglycerides 105 mg/dL (0-149) D 03/23/17 06:26 Cholesterol 140 mg/dL (0-199) 03/23/17 06:26 LDL Cholesterol Direct 57 mg/dL (0-129) 03/23/17 06:26 HDL Cholesterol 41 mg/dL (30-70) 03/23/17 06:26 Free T4 1.58 ng/dL (0.78-2.19) 03/23/17 06:26 TSH 3rd Generation 4.74 mIU/L (0.46-4.68) H 03/23/17 06:26 Urine Color Colorless (YELLOW) 03/22/17 20:13 Urine Clarity Hazy (Clear) 03/22/17 20:13 Urine pH 5.0 (5.0-8.0) 03/22/17 20:13 Ur Specific [place] 1.006 (1.003-1.030) 03/22/17 20:13 Urine Protein Negative mg/dL (NEGATIVE) 03/22/17 20:13 Urine Glucose (UA) Normal mg/dL (Normal) 03/22/17 20:13 Urine Ketones Negative mg/dL (NEGATIVE) 03/22/17 20:13 Urine Blood 1+ (NEGATIVE) H 03/22/17 20:13 Urine Nitrate Negative (NEGATIVE) 03/22/17 20:13 Urine Bilirubin Negative (NEGATIVE) 03/22/17 20:13 Urine Urobilinogen Normal mg/dL (0.2-1.0) 03/22/17 20:13 Ur Leukocyte Esterase Neg Missy/uL (Negative) 03/22/17 20:13 Urine WBC (Auto) 3 /hpf (0-5) 03/22/17 20:13 Urine RBC (Auto) 5 /hpf (0-3) H 03/22/17 20:13 Ur Squamous Epith Cells 3 /hpf (0-5) 03/22/17 20:13 Urine Bacteria Rare (<OCC) 03/22/17 20:13 - Hospital Course Hospital Course: On admission: 89 year old female PMHx HTN, atrial fibrillation, diverticulosis, osteopenia, CVA who presented to the ED BIBA with her son as she was feeling dizzy and weak this AM. Patient reports she felt like she was spinning and could feel like her heart was beating very fast which is why her son called EMS. As per ER documentation, patient was found to be in rapid Afib and was given Cardizem 20mg ivp in the field. In the ER patient was placed on cardizem gtt @ 10cc/hr. Patient reports she had a fall and CVA 2-3 months ago for which she was admitted at . Her only other complaint was pain in her knees and she stated she has a history of arthritis. Patient denied any complaints of fever, chills, diaphoresis, headache, blurry vision, ear pain, sore throat, dysphagia, chest pain, SOB, cough, abd pain, nausea, vomiting, bowel/bladder complaints, swelling of her legs bilaterally, back pain, bruising, bleeding, rash, recent bleeding, recent bruising, recent travel, recent sickness, sick contacts, change in appetite, change in weight. Hospital course: Pt admitted on 03/22 for dizziness and rapid heart beat. Pt found in rapid Afib in the field so given Cardizem IVP. When she arrived in ED pt was started on Cardizem drip. Pt was titrated off drip and started on oral meds: Cardizem, Amiodarone, Coreg. The doses of these were adjusted as Cardizem dose caused pt to become bradycardic. Pt denied chest pain or SOB over course. Pt stable for discharge per Dr. Alba on 03/25/17. Discharge Exam - Head Exam Head Exam: ATRAUMATIC, NORMOCEPHALIC - Eye Exam Eye Exam: EOMI Pupil Exam: PERRL - ENT Exam ENT Exam: Mucous Membranes Moist - Respiratory Exam Respiratory Exam: Clear to PA & Lateral, UNREMARKABLE - Cardiovascular Exam Cardiovascular Exam: REGULAR RHYTHM, +S1, +S2 - GI/Abdominal Exam GI & Abdominal Exam: Normal Bowel Sounds, Soft. absent: Tenderness - Extremities Exam Extremities exam: normal inspection - Neurological Exam Neurological exam: Alert, Oriented x3 Discharge Plan - Discharge Medications Prescriptions: Amiodarone Hydrochloride [Cordarone] 200 mg PO DAILY #30 tab Carvedilol [Coreg] 6.25 mg PO BID #60 tab diltiaZEM [Diltiazem HCl] 30 mg PO DAILY #30 tab - Follow Up Plan Condition: GOOD Disposition: HOME/ ROUTINE Instructions: Atrial Fibrillation (DC), Heart Healthy Diet (DC), Chronic Hypertension (DC) Additional Instructions: Patient stable for discharge per Dr. Alba Patient may resume her home medications EXCEPT FOR THE NORVASC which she should STOP TAKING. He has been prescribed the following medications: Cardizem, Carvedilol, Amiodarone Patient is make an appointment with their PMD, Dr. Alba, within one week of discharge for follow-up. She is also to follow up with tariff supervisor, Dr. Phan in one month's time. She was advised to return to the emergency department if symptoms return or worsen. These instructions were given to the pt in [place] by Dr. Alba. Patient expressed verbal understanding of these instructions. Prescribed medications at time of discharge: Cardizem 30mg, one tab by mouth ONCE daily Carvedilol 6.25 mg, one tab by mouth TWICE daily Amiodarone 200mg, one tab by mouth once daily Referrals: Lynnette Phan MD [Staff Provider] -
[2017-03-25 17:50] VITALS: BP 170/76; PULSE 71
[2017-03-25] MEDS ORDERED: POLYETHYLENE GLYCOL 3350 17 GM/Dose PACKET PO STA (18:23)
== END 2017-03-25 19:00 | disposition home or self-care (01) | DRG 310 ==
LOC: C.ER 17:42 → C.9E 21:32 → C.9I 03-23 01:03 → C.5T 03-23 14:27
PROVIDERS: ADMIT Internal Medicine; ATTEND Internal Medicine
DX: I48.91 Unspecified atrial fibrillation (principal); I44.30 Unspecified atrioventricular block; I10 Essential (primary) hypertension; I48.92 Unspecified atrial flutter; I08.0 Rheumatic disorders of both mitral and aortic valves; E78.00 Pure hypercholesterolemia, unspecified; M85.80 Other specified disorders of bone density and structure, unspecified site; Z86.74 Personal history of sudden cardiac arrest; Z90.49 Acquired absence of other specified parts of digestive tract; Z86.73 Personal history of transient ischemic attack (TIA), and cerebral infarction without residual deficits